=== PATIENT | male | born 1955 | race Caucasian/White ===

== ENCOUNTER 2020-06-20 22:10 | Emergency (ER) | payer MEDICARE, OTHER ==
[2020-06-20] MEDS ORDERED: Albuterol/Ipratropium 3.0-0.5 MG/3 ML Neb Soln NEB PRN (22:23)
[2020-06-20] MEDS ORDERED: Sodium Chloride 0.9% 10 ML Syringe FLUSH PRN (22:26)
--- NOTE | 2020-06-20 22:29 | EDM.PDOC ---
ED HPI GENERAL MEDICAL PROBLEM - General Chief Complaint: Respiratory Problem Stated Complaint: SOB Time Seen by Provider: 06/20/20 22:22 Source of Information: Reports: Patient History Limitations: Reports: Respiratory Distress (dyspnea. In speaking in 3-4 word sentences.) - History of Present Illness INITIAL COMMENTS - FREE TEXT/NARRATIVE: 64-year-old male presents to the ED due to gradually worsening dyspnea over the last week. Today has been awful. He states he can walk about 25 feet before he has to stop and get his breath. Occasional cough but is nonproductive. No appreciated fever or chills. No known exposure to COVID-19 illness. Patient has known COPD and continues to smoke 1 to 5 cigarettes/day. As far as he knows he has no known heart disease. He does appreciate some increased edema in his right lower extremity which is been present for the last couple of weeks. He sleeps always in an easy chair as he cannot lay flat to sleep at all due to marked orthopnea. Occasional central chest pressure discomfort with a feeling of inability to expel all of his air. He is aware of intermittent wheezing. No recent changes to any of his medications. He has been using his albuterol inhaler 2 puffs almost every hour to help get his breath. He takes Symbicort and Spiriva in the morning. He does have a home nebulizer machine home where he resides. He did not bring it with him. He is currently up in [place] working. Also uses oxygen at home at night usually 2 to 3 L and has an oxygen concentrator again back at home but not with him. Upon arrival in the ED his O2 sats are 87 to 88% on room air. He can speak in 3-4 word sentences before he has to rest. Onset: Gradual Onset Date: 06/13/20 (The worsening dyspnea over the last week.) Duration: Day(s):, Getting Worse Location: Reports: Chest (Dyspnea on minimal exertion.) Quality: Reports: Other Severity: Severe (Shortness of breath on walking about 25 feet.) Improves with: Reports: Medication (Very transient relief with albuterol metered-dose inhaler) Worsens with: Reports: Movement (Walking.) Context: Reports: Other (Known severe COPD.). Denies: Activity, Exercise, Lifting, Sick Contact, Trauma Associated Symptoms: Reports: Chest Pain (Vaginal central chest pressure discomfort), Cough ( like he cannot get all of his air out. Intermittent cough usually in the mornings with transient), Shortness of Breath (Standing over the last week to 10 days), Weakness (Due to dyspnea.). Denies: No Other Symptoms, Confusion, Diaphoresis, Fever/Chills ( brown sputum production. No hemoptysis), Headaches, Loss of Appetite, Malaise, Nausea/Vomiting, Rash, Seizure, Syncope Treatments SIDER: Reports: Other (see below) (No recent changes to any of his medications) - Related Data Allergies Allergy/AdvReac Type Severity Reaction Status Date / Time No Known Allergies Allergy Verified 06/20/20 22:27 Home Meds: Home Meds Albuterol Sulfate [Albuterol Sulfate HFA] 2 puff INH TID PRN 06/20/20 [History] Budesonide/Formoterol Fumarate [Symbicort 160-4.5 Mcg Inhaler] 2 puff INH BID 06/20/20 [History] Buprenorphine HCl/Naloxone HCl [Suboxone 4 mg-1 mg Sl Film] 2 each SL DAILY 06/20/20 [History] Tiotropium [Spiriva HandiHaler] 2 puff INH DAILY 06/20/20 [History] Furosemide [Lasix] 20 mg PO DAILY #30 tab 06/21/20 [Rx] Spironolactone [Aldactone] 25 mg PO DAILY #30 tab 06/21/20 [Rx] lisinopriL [Lisinopril] 20 mg PO DAILY #30 tablet 06/21/20 [Rx] Past Medical History Respiratory History: Reports: COPD (Due to cigarette smoking. He still smokes 1 to 5 cigarettes/day.) Social & Family History - Living Situation & Occupation Occupation: Employed [employer] - Review of Systems Review Of Systems: See Below Constitutional: Reports: Malaise, Weakness, Decreased Appetite. Denies: Fever, Chills HEENT: Reports: Glasses Respiratory: Reports: Shortness of Breath, Wheezing, Cough. Denies: Pleuritic Chest Pain, Sputum, Hemoptysis, Other Cardiovascular: Reports: Chest Pain (Has no central chest discomfort.), Blood Pressure Problem, Dyspnea on Exertion (Trace edema in his right lower extremity over the last 2 weeks.), Edema, Orthopnea, Palpitations ( Can walk about 25 feet before he has to rest to get his breath.). Denies: Claudication, Lightheadedness (Is been sleeping in an easy chair for over 2 years as he cannot lay flat to sleep.) Endocrine: Reports: Fatigue ( Of his heart working hard in his chest.) GI/Abdominal: Reports: Decreased Appetite, Distension. Denies: Constipation, Diarrhea, Nausea, Stool Incontinence, Vomiting, Other : Reports: Frequency (Bloated at times.), Other Musculoskeletal: Reports: Back Pain (Nocturia usually x2.), Joint Pain Skin: Reports: No Symptoms (Hips neck at times) Neurological: Reports: No Symptoms Psychiatric: Reports: No Symptoms Hematologic/Lymphatic: Reports: No Symptoms Immunologic: Reports: No Symptoms ED EXAM, GENERAL - Physical Exam Exam: See Below Exam Limited By: Respiratory Distress General Appearance: Alert (Can speak in 3-4 word sentences.), WD/WN, Moderate Distress, Other (Temperature is 36.7. Heart rate 103 on the monitor with frequent unifocal PVCs as well as PACs. Respiratory rate is 26 to 30/min with O2 sats of 87% on room air BP elevated 166 on 119.) Eye Exam: Bilateral Eye: Normal Inspection (No scleral icterus or blepharal pallor.), PERRL Throat/Mouth: Normal Inspection, Normal Lips, Normal Oropharynx, Other (Is mildly dry.). No: Normal Teeth Head: Atraumatic, Normocephalic Neck: Normal Inspection, Supple, Non-Tender, Full Range of Motion. No: Carotid Bruit, Lymphadenopathy (L), Lymphadenopathy (R), Thyromegaly Respiratory/Chest: Respiratory Distress (Marked tachypnea at rest.), Decreased Breath Sounds (Decreased breath sounds to the lower 50% of lung schneider posteriorly. Scattered expiratory wheezes throughout all lung schneider.), Wheezing, Accessory Muscle Use. No: Lungs Clear, Normal Breath Sounds Cardiovascular: No Murmur, No Rub, Tachycardia (Monitor reveals rate of 102/min. Frequent multifocal PVCs in combination with frequent PACs.). No: Normal Peripheral Pulses, Regular Rate, Rhythm, No Gallop Peripheral Pulses: 2+: Carotid (L), Carotid (R), Posterior Tibial (L), Posterior Tibial (R), Dorsalis Pedis (L), Dorsalis Pedis (R) GI/Abdominal: Normal Bowel Sounds, Soft, Non-Tender, No Organomegaly, No Mass, Pelvis Stable, Distended (Tympany in the epigastrium coupled with aerophagia.) Back Exam: Normal Inspection, Full Range of Motion. No: CVA Tenderness (L), CVA Tenderness (R) Extremities: Normal Range of Motion, Non-Tender, Pedal Edema (1+ pitting edema right lower extremity up to the distal tib-fib). No: No Pedal Edema Neurological: Alert, Oriented, CN II-XII Intact, Normal Cognition, No Motor/Sensory Deficits. No: Normal Gait Psychiatric: Normal Affect (Can walk not walk normally due to dyspnea.), Normal Mood Skin Exam: Warm, Dry, Intact, Normal Color, No Rash #1 Interpretation EKG Date: 06/20/20 Time: 22:19 Rhythm: Other Rate (Beats/Min): 102 (Multifocal frequent PVCs) [place]: RAD-Right [place] Deviation (253 degrees) P-Wave: Enlarged QRS: Other (Left atrial hypertrophy pattern Q-wave V1 V2 consider old anteroseptal myocardial infarction. Likely right ventricular hypertrophy pattern) ST-T: Other (T wave flattening V2 only.) QT: Normal EKG Interpretation Comments: Abnormal ECG Course - Vital Signs Last Recorded V/S: Last Vital Signs Temp 36.7 C 06/20/20 22:20 Pulse 103 H 06/20/20 22:20 Resp 26 H 06/20/20 22:20 BP 166/119 H 06/20/20 22:20 Pulse Ox 93 L 06/20/20 22:56 - Orders/Labs/Meds Labs: Laboratory Tests 06/20/20 06/20/20 06/20/20 Range/Units 22:27 22:27 22:27 WBC 10.32 H (4.23-9.07) K/mm3 RBC 4.32 L (4.63-6.08) M/mm3 Hgb 14.5 (13.7-17.5) gm/dl Hct 44.9 (40.1-51.0) % MCV 103.9 H (79.0-92.2) fl MCH 33.6 H (25.7-32.2) pg MCHC 32.3 (32.2-35.5) g/dl RDW Std Deviation 53.0 H (35.1-43.9) fL Plt Count 178 (163-337) K/mm3 MPV 9.1 L (9.4-12.3) fl Neut % (Auto) 69.9 H (34.0-67.9) % Lymph % (Auto) 15.7 L (21.8-53.1) % [place] % (Auto) 12.9 H (5.3-12.2) % Eos % (Auto) 1.0 (0.8-7.0) Baso % (Auto) 0.3 (0.1-1.2) % Neut # (Auto) 7.22 H (1.78-5.38) K/mm3 Lymph # (Auto) 1.62 (1.32-3.57) K/mm3 [place] # (Auto) 1.33 H (0.30-0.82) K/mm3 Eos # (Auto) 0.10 (0.04-0.54) K/mm3 Baso # (Auto) 0.03 (0.01-0.08) K/mm3 Manual Slide Review Abnormal smear PT 10.6 (9.7-12.0) SECONDS INR 0.99 APTT 25.6 (21.7-31.4) SECONDS D-Dimer, Quantitative 0.43 (0.19-0.50) mg/L Puncture Site ABG pH (7.35-7.45) ABG pCO2 (35.0-45.0) mmHg ABG pO2 (80.0-100.0) mmHg ABG HCO3 (22.0-26.0) meq/L ABG O2 Saturation (96.0-97.0) % ABG Base Excess (-2-2.0) Elvis Test A-a Gradient mmHg O2 Delivery Device Oxygen Flow Rate FiO2 (21.00-100.00) % Sodium 142 (136-145) mEq/L Potassium 3.6 (3.5-5.1) mEq/L Chloride 102 (98-107) mEq/L Carbon Dioxide 29 (21-32) mEq/L Anion Gap 14.6 (5-15) BUN 8 (7-18) mg/dL Creatinine 0.8 (0.7-1.3) mg/dL Est Cr Clr Drug Dosing 72.26 mL/min Estimated GFR (MDRD) > 60 (>60) mL/min BUN/Creatinine Ratio 10.0 L (14-18) Glucose 112 (80-115) mg/dL Calcium 9.3 (8.5-10.1) mg/dL Magnesium 1.6 L (1.8-2.4) mg/dl Total Bilirubin 0.5 (0.2-1.0) mg/dL AST 45 H (15-37) U/L ALT 53 (16-63) U/L Alkaline Phosphatase 66 (46-116) U/L CK-MB (CK-2) 1.4 (0-3.6) ng/ml Troponin I < 0.017 (0.00-0.056) ng/mL C-Reactive Protein <0.2 (<1.0) mg/dL NT-Pro-B Natriuret Pep (0-125) pg/mL Total Protein 8.2 (6.4-8.2) g/dl Albumin 3.3 L (3.4-5.0) g/dl Globulin 4.9 gm/dL Albumin/Globulin Ratio 0.7 L (1-2) Urine Color (Yellow) Urine Appearance (Clear) Urine pH (5.0-8.0) Ur Specific [place] (1.005-1.030) Urine Protein (Negative) Urine Glucose (UA) (Negative) Urine Ketones (Negative) Urine Occult Blood (Negative) Urine Nitrite (Negative) Urine Bilirubin (Negative) Urine Urobilinogen (0.2-1.0) Ur Leukocyte Esterase (Negative) Urine RBC (0-5) /hpf Urine WBC (0-5) /hpf Ur Epithelial Cells (0-5) /hpf Urine Bacteria (FEW) /hpf Urine Mucus (FEW) /hpf SARS-CoV-2 RNA (CHUCKY) (NEGATIVE) 06/20/20 06/20/20 06/20/20 Range/Units 22:27 22:37 23:13 WBC (4.23-9.07) K/mm3 RBC (4.63-6.08) M/mm3 Hgb (13.7-17.5) gm/dl Hct (40.1-51.0) % MCV (79.0-92.2) fl MCH (25.7-32.2) pg MCHC (32.2-35.5) g/dl RDW Std Deviation (35.1-43.9) fL Plt Count (163-337) K/mm3 MPV (9.4-12.3) fl Neut % (Auto) (34.0-67.9) % Lymph % (Auto) (21.8-53.1) % [place] % (Auto) (5.3-12.2) % Eos % (Auto) (0.8-7.0) Baso % (Auto) (0.1-1.2) % Neut # (Auto) (1.78-5.38) K/mm3 Lymph # (Auto) (1.32-3.57) K/mm3 [place] # (Auto) (0.30-0.82) K/mm3 Eos # (Auto) (0.04-0.54) K/mm3 Baso # (Auto) (0.01-0.08) K/mm3 Manual Slide Review PT (9.7-12.0) SECONDS INR APTT (21.7-31.4) SECONDS D-Dimer, Quantitative (0.19-0.50) mg/L Puncture Site Rt radial ABG pH 7.40 (7.35-7.45) ABG pCO2 42.3 (35.0-45.0) mmHg ABG pO2 64.0 L (80.0-100.0) mmHg ABG HCO3 25.8 (22.0-26.0) meq/L ABG O2 Saturation 90.6 L (96.0-97.0) % ABG Base Excess 1.3 (-2-2.0) Elvis Test Positive A-a Gradient 111 mmHg O2 Delivery Device Nasal cannula Oxygen Flow Rate 3.0 FiO2 32.00 (21.00-100.00) % Sodium (136-145) mEq/L Potassium (3.5-5.1) mEq/L Chloride (98-107) mEq/L Carbon Dioxide (21-32) mEq/L Anion Gap (5-15) BUN (7-18) mg/dL Creatinine (0.7-1.3) mg/dL Est Cr Clr Drug Dosing mL/min Estimated GFR (MDRD) (>60) mL/min BUN/Creatinine Ratio (14-18) Glucose (80-115) mg/dL Calcium (8.5-10.1) mg/dL Magnesium (1.8-2.4) mg/dl Total Bilirubin (0.2-1.0) mg/dL AST (15-37) U/L ALT (16-63) U/L Alkaline Phosphatase (46-116) U/L CK-MB (CK-2) (0-3.6) ng/ml Troponin I (0.00-0.056) ng/mL C-Reactive Protein (<1.0) mg/dL NT-Pro-B Natriuret Pep 704 H (0-125) pg/mL Total Protein (6.4-8.2) g/dl Albumin (3.4-5.0) g/dl Globulin gm/dL Albumin/Globulin Ratio (1-2) Urine Color (Yellow) Urine Appearance (Clear) Urine pH (5.0-8.0) Ur Specific [place] (1.005-1.030) Urine Protein (Negative) Urine Glucose (UA) (Negative) Urine Ketones (Negative) Urine Occult Blood (Negative) Urine Nitrite (Negative) Urine Bilirubin (Negative) Urine Urobilinogen (0.2-1.0) Ur Leukocyte Esterase (Negative) Urine RBC (0-5) /hpf Urine WBC (0-5) /hpf Ur Epithelial Cells (0-5) /hpf Urine Bacteria (FEW) /hpf Urine Mucus (FEW) /hpf SARS-CoV-2 RNA (CHUCKY) Negative (NEGATIVE) 06/21/20 Range/Units 00:17 WBC (4.23-9.07) K/mm3 RBC (4.63-6.08) M/mm3 Hgb (13.7-17.5) gm/dl Hct (40.1-51.0) % MCV (79.0-92.2) fl MCH (25.7-32.2) pg MCHC (32.2-35.5) g/dl RDW Std Deviation (35.1-43.9) fL Plt Count (163-337) K/mm3 MPV (9.4-12.3) fl Neut % (Auto) (34.0-67.9) % Lymph % (Auto) (21.8-53.1) % [place] % (Auto) (5.3-12.2) % Eos % (Auto) (0.8-7.0) Baso % (Auto) (0.1-1.2) % Neut # (Auto) (1.78-5.38) K/mm3 Lymph # (Auto) (1.32-3.57) K/mm3 [place] # (Auto) (0.30-0.82) K/mm3 Eos # (Auto) (0.04-0.54) K/mm3 Baso # (Auto) (0.01-0.08) K/mm3 Manual Slide Review PT (9.7-12.0) SECONDS INR APTT (21.7-31.4) SECONDS D-Dimer, Quantitative (0.19-0.50) mg/L Puncture Site ABG pH (7.35-7.45) ABG pCO2 (35.0-45.0) mmHg ABG pO2 (80.0-100.0) mmHg ABG HCO3 (22.0-26.0) meq/L ABG O2 Saturation (96.0-97.0) % ABG Base Excess (-2-2.0) Elvis Test A-a Gradient mmHg O2 Delivery Device Oxygen Flow Rate FiO2 (21.00-100.00) % Sodium (136-145) mEq/L Potassium (3.5-5.1) mEq/L Chloride (98-107) mEq/L Carbon Dioxide (21-32) mEq/L Anion Gap (5-15) BUN (7-18) mg/dL Creatinine (0.7-1.3) mg/dL Est Cr Clr Drug Dosing mL/min Estimated GFR (MDRD) (>60) mL/min BUN/Creatinine Ratio (14-18) Glucose (80-115) mg/dL Calcium (8.5-10.1) mg/dL Magnesium (1.8-2.4) mg/dl Total Bilirubin (0.2-1.0) mg/dL AST (15-37) U/L ALT (16-63) U/L Alkaline Phosphatase (46-116) U/L CK-MB (CK-2) (0-3.6) ng/ml Troponin I (0.00-0.056) ng/mL C-Reactive Protein (<1.0) mg/dL NT-Pro-B Natriuret Pep (0-125) pg/mL Total Protein (6.4-8.2) g/dl Albumin (3.4-5.0) g/dl Globulin gm/dL Albumin/Globulin Ratio (1-2) Urine Color Yellow (Yellow) Urine Appearance Slt cloudy H (Clear) Urine pH 6.5 (5.0-8.0) Ur Specific [place] 1.025 (1.005-1.030) Urine Protein Negative (Negative) Urine Glucose (UA) Negative (Negative) Urine Ketones Negative (Negative) Urine Occult Blood Negative (Negative) Urine Nitrite Negative (Negative) Urine Bilirubin 1+ H (Negative) Urine Urobilinogen 4.0 H (0.2-1.0) Ur Leukocyte Esterase Negative (Negative) Urine RBC 0-5 (0-5) /hpf Urine WBC 0-5 (0-5) /hpf Ur Epithelial Cells Not seen (0-5) /hpf Urine Bacteria Few (FEW) /hpf Urine Mucus Moderate H (FEW) /hpf SARS-CoV-2 RNA (CHUCKY) (NEGATIVE) Meds: Medications Discontinued Medications Generic Name Dose Route Start Last Admin Trade Name Freq PRN Reason Stop Dose Admin Albuterol/Ipratropium 3 ml 06/20/20 22:23 06/20/20 22:56 Albuterol/Ipratropium 3.0-0.5 Mg/3 Ml Neb Soln NEB 3 ml Q4H PRN Administration Shortness Of Breath/wheezing Furosemide 40 mg 06/21/20 06:00 06/21/20 06:01 Furosemide 40 Mg/4 Ml Vial IVPUSH 06/21/20 06:01 40 mg NOW ONE Administration Sodium Chloride 1,000 mls @ 500 mls/hr 06/20/20 23:00 06/21/20 00:05 Normal Saline IV 25 mls/hr ASDIRECTED NANCIE Infusion Magnesium Sulfate/Dextrose 1 100 mls @ 100 mls/hr 06/21/20 00:18 06/21/20 01:04 gm/ Premix IV 06/21/20 01:17 100 mls/hr ONETIME ONE Administration Methylprednisolone Sodium Succinate 62.5 mg 06/20/20 22:52 06/20/20 23:09 Methylprednisolone Sodium Succinate 125 Mg/2 Ml Sdv IVPUSH 06/20/20 22:53 62.5 mg ONETIME ONE Administration Sodium Chloride 10 ml 06/20/20 22:26 06/20/20 23:08 Sodium Chloride 0.9% 10 Ml Syringe FLUSH 10 ml ASDIRECTED PRN Administration Keep Vein Open - Radiology Interpretation Free Text/Narrative:: 64-year-old male attends the ED due to gradually worsening dyspnea over the last week to 10 days. By history he has chronic severe COPD on home oxygen nighttime back at home. He is currently working in [place] and did not bring his oxygen concentrator with him. I merrily uses that at bedtime.. He is maintained on albuterol metered-dose inhaler which he has been using 2 puffs almost every hour but still can get significant relief of dyspnea. Has a cough without any significant sputum production except in the mornings. He is on Symbicort metered-dose inhaler which he uses in the mornings and Spiriva in the mornings. On exam he presents with O2 sats of 87 to 88% on room air after walking into the department. No fever appreciated on exam. Decreased air entry at lower 50% lung schneider bilaterally. Scattered wheezes throughout all lung schneider. No rhonchi appreciated. Plan DuoNeb will be given now and repeated in 20 minutes. He may well require continuous albuterol treatments for an hour. ABGs to be done. Chest x-ray to be done. Saline lock at this time. ECG suggests old anteroseptal myocardial infarction. Patient has no history of AK. Patient reports he has been on prednisone in the past but it makes him go squarely after about 3 or 4 days. Usually takes only the 10 mg tablets instead of the 20mg tabs. He has light weight weighing around 120 pounds. He has an oxygen concentrator at home where he resides but he does not have 1 now here where he is working for the next 10 days or more. He feels volume depleted. He will be started on normal saline 500 mils per hour. I will give him one half dose of Solu-Medrol 125 mg or 62.5 mg IV. - Re-Assessments/Exams Free Text/Narrative Re-Assessment/Exam: 06/20/20 23:01 Chest x-ray done portably reveals markedly hyperinflated lung f ields with flattening of the diaphragm particular noted on the left side. Cardiac silhouette is otherwise normal. Visualized lung parenchyma reveals no pneumonia. No pneumothorax Free Text/Narrative Re-Assessment/Exam: 06/20/20 23:51 White count is slightly elevated at 10.32. Auto differential shows 70% neutrophils. Hemoglobin is 14.5 with hematocrit of 44.9. MCV is mildly elevated 103.9. Platelet count is 178,000. The smear reveals 1+ anisocytosis and 1+ macrocytosis. PT was 10.6 with an INR of 0.99. PTT is 25.6. D-dimer is 0.43. ABGs revealed a pH of 7.40 with a PCO2 of 42.3 and a PO2 of 64.0 O2 sats were 90.6% on 3 L by nasal cannula. Sodium was 142 with a potassium of 3.6. Chloride 102 with a bicarb of 29. Anion gap is 14.6. BUN is 8 with a creatinine of 0.8 and a GFR greater than 60. Glucose is 112. Calcium is 9.3 magnesium slightly low at 1.6. Bilirubin is 0.5 AST slightly elevated at 45. ALT is 53. Alk phos today is normal at 66. CK-MB fraction is 1.4 troponin I is less than 0.017. C-reactive protein is less than 0.2. BNP is mildly elevated at 704. Total protein is 8.2 with an albumin fraction of 3.3. 06/21/20 00:16 Patient is resting comfortably at this point time in fact he had been able to fall asleep on 3 L of oxygen per nasal cannula. His BNP is mildly elevated at 704 indicating he is developing secondary congestive heart failure due to chronic COPD. His IV fluids were therefore discontinued. I will plan on giving him a dose of Lasix little later on in the morning. The plan will be for him to stay in the ED overnight as he has no place else to go and he requires oxygen supplementation at this time. The plan will be try to try and arrange oxygen supplementation through [facility] later today. His serum magnesium is slightly low at 1.6. Will infuse 2 g of magnesium over the next few hours while he is in the ED. 06/21/20 02:16 Patient has been able to fall asleep. Heart rate is 76 and sinus. O2 sats are 94% on 3 L/min by nasal cannula. BP 145/77. 06/21/20 04:59 Heart rate remains in the 60s sinus rhythm. O2 sat 94% on 3 L/min by nasal cannula. 06/21/20 06:51 clearing his lungs this morning of phlegm his sats are up to 89 to 90% on room air which I suspect is where he always is. He did receive Lasix 40 mg IV at 0600 hrs. and is now voiding. He will hang out in the ED until he is able to get the [facility] or [facility] rehab services to obtain a oxygen concentrator and the equipment he will need while he is in [place]. Plans on renting it for about 10 days. Scripts were written for lisinopril 20 mg once daily for blood pressure control and also to gradually strengthen the left side of his heart. Lasix 40 mg once daily every morning with Aldactone 25 mg once daily as a potassium sparing diuretic. He is for lab work when he gets back home in 2 weeks time. Departure - Departure Time of Disposition: 07:55 Disposition: Home, Self-Care 01 Condition: Fair Clinical Impression: Mild congestive heart failure Chronic obstructive pulmonary disease Qualifiers: COPD type: emphysema Emphysema type: panlobular Qualified Code(s): J43.1 - Panlobular emphysema Hypertension Qualifiers: Hypertension type: essential hypertension Qualified Code(s): I10 - Essential (primary) hypertension - Discharge Information *PRESCRIPTION DRUG MONITORING PROGRAM REVIEWED*: Not Applicable *COPY OF PRESCRIPTION DRUG MONITORING REPORT IN PATIENT NITHIN: Not Applicable Prescriptions: Spironolactone [Aldactone] 25 mg PO DAILY #30 tab Furosemide [Lasix] 20 mg PO DAILY #30 tab lisinopriL [Lisinopril] 20 mg PO DAILY #30 tablet Instructions: Heart Failure, Self Care, Chronic Obstructive Pulmonary Disease, [id number], COPD and Physical Activity, Heart Failure Medicines, Hypertension, Adult, Heart Failure Eating Plan Referrals: PCP,Not In Area [Primary Care Provider] - Forms: ED Department Discharge Additional Instructions: Evaluation in the emergency room tonight in regards to development of gradually worsening shortness of breath on minimal exertion over the last week. Known to have chronic obstructive pulmonary disease primarily secondary to cigarette smoking. Lab work also identified a component of congestive heart failure with an elevated BNP at 704 with normal being less than 125. This fluid retention is in your lungs which makes it harder to breathe as well compounding emphysema changes. It is therefore recommended that you start medication Lasix 20 mg once daily every morning with Aldactone 25 mg every morning which worked together to help reduce fluid retention in your lungs. Your blood pressure was also found to be moderately elevated and I would suggest starting lisinopril 20 mg once daily a blood pressure medication which also helps with congestive heart failure by improving the contractility of the left side of your heart over time. You should have routine labs performed in about 3 to 4 weeks time when you get back home to check on kidney and serum potassium levels. I have written a prescription for an oxygen concentrator and hope was that would be acquired for oxygen supplementation during the night while you remain in [place]. You may rent this from [facility] services which is up on . [address] close to [employer]'s [facility] and [facility].
[2020-06-20] MEDS ORDERED: methylPREDNISolone Sodium Succinate 125 MG/2 ML SDV IVPUSH ONE (22:52)
[2020-06-20] MEDS ORDERED: Sodium Chloride 0.9% 1,000 ML IV SCH (23:00)
[2020-06-21] MEDS ORDERED: Furosemide 40 MG/4 ML VIAL IVPUSH ONE (06:00)
--- NOTE | 2020-06-21 06:55 | CR ---
Chest: Portable view of the chest was obtained. Comparison: No prior chest imaging is available. Heart size and mediastinum are normal. Slight density within the lateral left costophrenic angle is seen compatible with small focal area of pleural thickening or nodular density. Small nodule is also noted slightly superior measuring about 7 mm. Slight linear density within the left base compatible with slight atelectasis. Lungs otherwise are clear with no acute parenchymal change. Slight scoliosis is noted within the spine. Impression: 1. Pleural thickening or nodule within the lateral left costophrenic angle. Small nodule is noted more superiorly within the left base. Follow-up chest x-ray recommended in 1 month to further evaluate these findings. 2. Slight linear atelectasis within the left base. 3. Nothing acute is otherwise seen. Diagnostic code #3
== END 2020-06-21 08:40 | disposition home or self-care (01) ==
LOC: JD.ED 22:10
DX: J43.1 Panlobular emphysema (principal); I11.0 Hypertensive heart disease with heart failure; I50.9 Heart failure, unspecified; F17.210 Nicotine dependence, cigarettes, uncomplicated; Z20.822 Contact with and (suspected) exposure to COVID-19; Z79.899 Other long term (current) drug therapy
CPT/HCPCS: 36415; 36600; 71045; 80053; 81001; 82553; 82803; 83735; 83880; 84484; 85025; 85379; 85610; 85730; 86140; 93005; 94640; 96365; 96375; 99285; J1940; J2930; J3475; J7030; U0002; 93010; J7620-GY